=== PATIENT | female | born 1990 ===

== ENCOUNTER 2021-02-09 07:24 | Emergency (ER) | payer OTHER ==
[~2021-02-09] VITALS: Ht 160 cm; Wt 44.0 kg
[2021-02-09] MEDS ORDERED: MIRENA1 EACH (07:44)
[2021-02-09] MEDS ORDERED: ADDERALL 20 MG20 MG PO (07:44)
[2021-02-09] MEDS ORDERED: KETO10TA2 PO (16:39)
[2021-02-09] MEDS ORDERED: STONEX PO (16:39)
[2021-02-09] MEDS ORDERED: PYRIDIUM DS200 MG PO (16:39)
== END 2021-02-09 16:45 | disposition home or self-care (01) ==
LOC: ER 07:24
DX: N20.0 Calculus of kidney (principal); N39.0 Urinary tract infection, site not specified

== ENCOUNTER 2022-03-17 19:28 | Emergency (ER) | payer OTHER ==
[~2022-03-17] VITALS: Ht 162.6 cm; Wt 45.4 kg
[~2022-03-17 19:28] MED LIST: ADDERALL 20 MG20 MG PO; KETO10TA2 PO; MIRENA1 EACH; PYRIDIUM DS200 MG PO; STONEX PO
[2022-03-18] MEDS ORDERED: CEPHALEXIN500 MG PO (08:05)
[2022-03-18] MEDS ORDERED: TAMS0.4C PO (08:05)
[2022-03-18] MEDS ORDERED: KETO10TA2 PO (08:05)
== END 2022-03-18 08:26 ==
LOC: ER 19:28
DX: N23 Unspecified renal colic (principal); N20.2 Calculus of kidney with calculus of ureter; Z87.442 Personal history of urinary calculi; N39.0 Urinary tract infection, site not specified; Z88.2 Allergy status to sulfonamides; Z91.013 Allergy to seafood

== ENCOUNTER → 2022-04-05 | Day surgery (SDC) | payer OTHER ==
[~2022-04-05] VITALS: Ht 167.6 cm; Wt 54.4 kg
[~2022-04-05] MED LIST changes: +CEPHALEXIN500 MG PO; +LEVOFLOXACIN500 MG PO; +PERCOCET 5-3251 EACH PO; +TAMS0.4C PO
== END | disposition home or self-care (01) ==
LOC: ER 06:48 → CIR.AMB 10:07 → SEC-K 10:07 → CIR.AMB 10:07 → O/R 10:07 → ER 10:07 → SEC-K 13:21 → O/R 13:21 → EDSTATUS 14:00 → O/R 23:59
PROVIDERS: ATTEND Specialist
DX: N20.1 Calculus of ureter (principal); Z96.0 Presence of urogenital implants; Z91.013 Allergy to seafood; Z88.2 Allergy status to sulfonamides; J45.909 Unspecified asthma, uncomplicated; Z20.822 Contact with and (suspected) exposure to COVID-19